=== PATIENT | male | born 1995 | race Two or more races ===

== ENCOUNTER 2020-09-10 15:22 | Emergency (ER) | payer SELFPAY ==
[2020-09-10] MEDS ORDERED: Lidocaine 2% 5 ML SDV INJECT ONE (15:49)
[2020-09-10] MEDS ORDERED: Cephalexin 500 MG Cap PO ONE (15:50)
[2020-09-10] MEDS ORDERED: Diphtheria,Pertussis(Acell),Tetanus Vaccine 0.5 ML Syringe IM ONE (15:51)
--- NOTE | 2020-09-10 15:57 | EDM.PDOC ---
ED HPI GENERAL MEDICAL PROBLEM - General Chief Complaint: Upper Extremity Injury/Pain Stated Complaint: RT HAND FINGERS HURT Time Seen by Provider: 09/10/20 15:49 - History of Present Illness INITIAL COMMENTS - FREE TEXT/NARRATIVE: History of present illness: [] Patient has noticed increased swelling and pain in the tip of his finger over the last couple of days. He has no foreign body. He is not diabetic. He has not had a tetanus shot in more than 10 years. There is no pain radiating up the hand and he has no systemic signs of infection. Review of systems: As per history of present illness and below otherwise all systems reviewed and negative. Past medical history: As per history of present illness and as reviewed below otherwise noncontributory. Surgical history: As per history of present illness and as reviewed below otherwise noncontributory. Social history: No reported history of drug or alcohol abuse. Family history: As per history of present illness and as reviewed below otherwise noncontributo ry. Physical exam: Constitutional - well developed, well-nourished and in no acute distress HEENT - normocephalic, no evidence of trauma - external nose and mouth normal - no mass in neck and no JVD - mucosae moist EYES - full EOM, PERRL, no icterus - no evidence of inflammation, injection, or drainage Respiratory - no respiratory distress, equal bilateral expansion Musculoskeletal tenderness and swelling of the distal tip of the third digit of the right hand. No gross deformity of long bones or joints - no tenderness, swelling or edema Neurologic - Alert and oriented times four - CN II-XII grossly intact - motor sensory and coordination symmetrically normal Psychiatric - appropriate mood and affect with normal thought content Hematologic - No petechiae or purpura - mucosa appropriate color and sclera not pale - normal nail bed color and refill Integument -translucent skin over the swollen right distal segment of the hand with purulent material visible as well as some ecchymosis. No rash or evidence of trauma - normal turgor Diagnostics: [] Therapeutics: [] Impression: [] Plan: [] Definitive disposition and diagnosis as appropriate pending reevaluation and review of above. - Related Data Allergies Allergy/AdvReac Type Severity Reaction Status Date / Time No Known Allergies Allergy Verified 09/10/20 15:55 Home Meds: Home Meds Acetaminophen/oxyCODONE [Percocet 325-5 MG] 1 - 2 each PO Q4HR PRN #20 tab 09/10/20 [Rx] cephALEXin [Cephalexin] 500 mg PO BID #14 capsule 09/10/20 [Rx] Review of Systems - Review of Systems Review Of Systems: Comprehensive ROS is negative, except as noted in HPI. ED EXAM, GENERAL - Physical Exam Exam: See Below Free Text/Narrative:: My physical exam is in the [facility] ED TRAUMA EXTREMITY PROCEDURES - I&D Site: Fingertip Skin Prep: Providone-Iodine (Betadine) Local Anesthesia: Lidocaine: 2% Plain Local Anesthetic Volume: Other (15cc) Area Incised With: 11 Blade Drainage: Purulent Packed With: 1/4 in. Iodoform Progress/Comments: Digital block was done after sterile prep with povidone iodine. After time for it to take effect the fingertip was opened and adhesions broken up. Iodoform packing 1/4 inch was passed in through. Course - Vital Signs Text/Narrative:: 1620 hrs. digital block accomplished with 10 cc of 2% lidocaine and the third digit - Orders/Labs/Meds Orders: Active Orders 24 hr Category Date Time Status Vaccines to be Administered [RC] PER UNIT ROUTINE Care 09/10/20 15:51 Active Meds: Medications Discontinued Medications Generic Name Dose Route Start Last Admin Trade Name Bernardo PRN Reason Stop Dose Admin Cephalexin 500 mg 09/10/20 15:50 09/10/20 16:12 Cephalexin 500 Mg Cap PO 09/10/20 15:51 500 mg ONETIME ONE Administration Diphtheria/Tetanus/Acell Pertussis 0.5 ml 09/10/20 15:51 09/10/20 16:13 Diphtheria,Pertussis(Acell),Tetanus Vaccine 0.5 Ml Syringe IM 09/10/20 15:52 0.5 ml .ONCE ONE Administration Lidocaine 20 ml 09/10/20 15:49 09/10/20 16:12 Lidocaine 2% 5 Ml Sdv INJECT 09/10/20 15:50 20 ml ONETIME ONE Administration Departure - Departure Time of Disposition: 17:00 Disposition: Home, Self-Care 01 Condition: Good Clinical Impression: Felon of digit - Discharge Information Prescriptions: cephALEXin [Cephalexin] 500 mg PO BID #14 capsule Acetaminophen/oxyCODONE [Percocet 325-5 MG] 1 - 2 each PO Q4HR PRN #20 tab PRN Reason: Pain (Severe 7-10) Instructions: Skin Abscess, [id number] Referrals: PCP,None [Primary Care Provider] - Forms: ED Department Discharge Additional Instructions: Despus de retirar el empaque 2 mera, comience a remojar en caliente y vuelva a revisar en 2 a 3 mera. Ze[facility] - [facility] [address] [place] [id number] [place]: [facility] [address] [place] [address] Telfono: La siguiente informacin se mary a los pacientes atendidos en el departamento de emergencias que estn siendo dados de chinyere a elkins hogar. Esta informacin es para describir riccardo opciones para la atencin de seguimiento. Proporcionamos a todos los pacientes atendidos en nuestro departamento de emergencias wil derivacin de seguimiento. La necesidad de seguimiento, as liborio el momento y las circunstancias, varan segn los detalles de elkins visita al departamento de emergencias. Si no tiene un mdico de atencin primaria en el personal, le proporcionaremos wil referencia. Siempre le recomendamos que se ponga en contacto con elkins mdico personal despus de wil visita al servicio de urgencias para informarle de las circunstancias de la visita y para hacer un seguimiento con l y / o la necesidad de cualquier derivacin a un especialista consultor. El departamento de emergencias tambin lo derivar a un especialista cuando sea apropiado. Esta remisin le asegura que tiene la oportunidad de recibir atencin de seguimiento con un especialista. Todas estas medidas se gary en un esfuerzo por brindarle wil atencin ptima, que incluye elkins seguimiento. En todas las circunstancias, siempre lo alentamos a que se comunique con elkins mdico privado, quien sigue siendo un recurso para coordinar elkins atencin. Cuando llame para recibir atencin de seguimiento, informe al consultorio que katina seguimiento es de elkins visita reciente a la tarah de emergencias. Si por alguna razn se le niega el seguimiento, comunquese con el [facility]amento [facility] al y solicite hablar con la enfermera a cargo del departamento de emergencias. After removal of the packing 2 days begin hot soaks and recheck in 2 to 3 days. [facility] [address] [place] [address] [address] [address] [id number] The following information is given to patients seen in the emergency department who are being discharged to home. This information is to outline your options for follow-up care. We provide all patients seen in our emergency department with a follow-up referral. The need for follow-up, as well as the timing and circumstances, are variable depending upon the specifics of your emergency department visit. If you don't have a primary care physician on staff, we will provide you with a referral. We always advise you to contact your personal physician following an emergency department visit to inform them of the circumstance of the visit and for follow-up with them and/or the need for any referrals to a consulting spe cialist. The emergency department will also refer you to a specialist when appropriate. This referral assures that you have the opportunity for follow-up care with a specialist. All of these measure are taken in an effort to provide you with optimal care, which includes your follow-up. Under all circumstances we always encourage you to contact your private physician who remains a resource for coordinating your care. When calling for follow-up care, please make the office aware that this follow-up is from your recent emergency room visit. If for any reason you are refused follow-up, please contact the [facility] Emergency Department at and asked to speak to the emergency department charge nurse. - My Orders Last 24 Hours: My Active Orders 09/10/20 15:51 Vaccines to be Administered [RC] PER UNIT ROUTINE - Assessment/Plan Last 24 Hours: My Active Orders 09/10/20 15:51 Vaccines to be Administered [RC] PER UNIT ROUTINE
== END 2020-09-10 17:21 | disposition home or self-care (01) ==
LOC: MW.ED 15:22
DX: L03.011 Cellulitis of right finger (principal); Z23 Encounter for immunization
CPT/HCPCS: 26011; 90471; 90715; 99283; A9270